=== PATIENT | female | born 1970 | race African-American/Black ===

== ENCOUNTER 2017-10-26 02:32 | Emergency (ER) | payer OTHER ==
[~2017-10-26] VITALS: Ht 162.6 cm; Wt 90.9 kg
[~2017-10-26 02:32] MED LIST: ATEN50TA PO; LOSA50TA37 PO
[2017-10-26] MEDS ORDERED: CLON.3 PO (02:42)
[2017-10-26] MEDS ORDERED: BUMETANIDE 0.25 MG/ML 4 ML VIAL IVP ONE (03:30)
[2017-10-26] MEDS ORDERED: NITROGLYCERIN 2% (1 GM=INCH) PACKET TP ONE (03:45)
[2017-10-26 03:48] LABS: EOSINOPHILS # (AUTO) 0.03 K/uL (0.00-0.70); HEMATOCRIT 33.3 % (36-46); HEMOGLOBIN 10.7 g/dL (12.0-16.0); LYMPHOCYTES # (AUTO) 1.1 K/uL (1.0-4.8); LYMPHOCYTES % (AUTO) 20.8 % (22.0-44.0); MEAN CORPUSCULAR HGB CONC 32.1 G/dL (31.0-37.0); MEAN CORPUSCULAR VOLUME 84 fL (80-100); MONOCYTES # (AUTO) 0.2 K/uL (0.1-1.0); MONOCYTES % (AUTO) 4.2 % (2.0-9.0); NEUTROPHILS # (AUTO) 3.8 K/uL (1.8-7.7); NEUTROPHILS % (AUTO) 72.5 % (40.0-70.0); PLATELET COUNT (AUTO) 429 K/uL (150-450); RED BLOOD CELL COUNT(AUTO) 3.96 MIL/uL (4.00-5.20); RED CELL DISTRIBUTION WIDTH 18.1 % (11.5-14.5); WHITE BLOOD COUNT (AUTO) 5.2 K/uL (4.5-11.0)
[2017-10-26 04:04] LABS: ALBUMIN 2.8 g/dL (3.4-5.0); BILIRUBIN,TOTAL 1.2 mg/dL (0.1-1.0); CALCIUM, TOTAL 8.8 mg/dL (8.8-10.5); CREATININE 1.84 mg/dL (0.60-1.30); TOTAL PROTEIN, SERUM 7.8 g/dL (6.4-8.2)
[2017-10-26 04:06] LABS: POTASSIUM 2.9 mmol/L (3.5-5.1)
[2017-10-26] MEDS ORDERED: POTASSIUM CHLORIDE 20 MEQ ER TABLET PO ONE (04:15)
[2017-10-26 05:13] VITALS: BP 217/108
== END 2017-10-26 05:15 | disposition left against medical advice (07) ==
LOC: EMS 02:33
DX: I50.9 Heart failure, unspecified (principal); I11.0 Hypertensive heart disease with heart failure; J45.909 Unspecified asthma, uncomplicated; F17.210 Nicotine dependence, cigarettes, uncomplicated
CPT/HCPCS: 36415; 71010; 80053; 83880; 84484; 84703; 85025; 93005; 96374; 99285; J3490

== ENCOUNTER 2023-11-30 15:08 | Emergency (ER) | payer OTHER ==
[~2023-11-30] VITALS: Ht 162.6 cm; Wt 73.0 kg
[~2023-11-30 15:08] MED LIST changes: -ATEN50TA PO; +CLON0.3T PO; -LOSA50TA37 PO
[2023-11-30] MEDS ORDERED: GLIP5TAB16 PO (15:10)
[2023-11-30 15:15] VITALS: TEMP 98
[2023-11-30] MEDS ORDERED: ONDANSETRON HCL 4 MG/2 ML VIAL IVP ONE (16:30)
[2023-11-30] MEDS ORDERED: HYDROmorphone HCL 2 MG/ML SYRINGE IVP ONE (16:30)
[2023-11-30] MEDS ORDERED: AMOX TR/POT CLAV 875 MG/125 MG TABLET PO ONE (17:15)
[2023-11-30] MEDS ORDERED: BACITRACIN 28 GM OINTMENT TP ONE (17:15)
[2023-11-30] MEDS ORDERED: LIDOCAINE 1% 10 ML VIAL SQ ONE ×2 (17:15→18:30)
[2023-11-30] MEDS ORDERED: CefTRIAXone 1 GM/DEXTROSE 50 ML IV ONE (17:15)
[2023-11-30] MEDS ORDERED: PERTUSS(ACELL),DIPH,TET VAC/PF 0.5 ML SYRINGE IM. ONE (18:30)
[2023-11-30 18:35] VITALS: BP 165/92; PULSE 99; RESP 20
[2023-11-30] MEDS ORDERED: AMOX1TAB16 PO (19:49)
[2023-11-30] MEDS ORDERED: IBUP-1554 PO (19:49)
== END 2023-11-30 21:45 | disposition home or self-care (01) ==
LOC: EMS 15:08
DX: S61.411A Laceration without foreign body of right hand, initial encounter (principal); S71.111A Laceration without foreign body, right thigh, initial encounter; J45.909 Unspecified asthma, uncomplicated; I11.0 Hypertensive heart disease with heart failure; I50.9 Heart failure, unspecified; F17.210 Nicotine dependence, cigarettes, uncomplicated; Z90.49 Acquired absence of other specified parts of digestive tract; Z90.710 Acquired absence of both cervix and uterus; Z98.890 Other specified postprocedural states; X58.XXXA Exposure to other specified factors, initial encounter; Y93.89 Activity, other specified; Y92.89 Other specified places as the place of occurrence of the external cause; Y99.8 Other external cause status
CPT/HCPCS: 12044; 99285; 96365; 96375; 73130; 90715; 90471; 12001; J0696; J1170; J2405; J3490; 12004; 96360; 99284